=== PATIENT | male | born 2005 | race African-American/Black ===

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

== ENCOUNTER → 2024-01-16 | Outpatient (REF) | payer BC ==
[2024-01-16 17:57] LABS: Trichomonas vaginalis (AMP) NOT DETECTED (NEGATIVE)
[2024-01-16 18:20] LABS: GC DNA AMPLIFICATION NEGATIVE (NEGATIVE)
[2024-01-16 18:42] LABS: HEMATOCRIT 44.1 % (42.0-52.0); HEMOGLOBIN 14.5 g/dl (13.5-17.5); MEAN CORPUSCULAR HEMOGLOBIN 29.7 pg (27.0-33.0); MEAN CORPUSCULAR HGB CONC 32.9 g/dl (32.0-36.5); MEAN CORPUSCULAR VOLUME 90.2 fl (80.0-96.0); PLATELET COUNT, AUTOMATED 280 10^3/uL (150-450); RED BLOOD COUNT 4.89 10^6/uL (4.30-6.10); WHITE BLOOD COUNT 7.7 10^3/uL (4.0-10.0)
[2024-01-16 19:14] LABS: THYROID STIMULATING HORMONE 1.226 uIU/ML (0.48-4.17)
[2024-01-16 19:17] LABS: BLOOD UREA NITROGEN 10 MG/DL (9-23); CARBON DIOXIDE LEVEL 30 MMOL/L (20-31); CHLORIDE LEVEL 106 MMOL/L (98-107); CREATININE FOR GFR 0.95 MG/DL (0.70-1.30); GLUCOSE, FASTING 68 MG/DL (60-100); POTASSIUM SERUM 4.6 MMOL/L (3.5-5.1); SODIUM LEVEL 139 MMOL/L (136-145)
[2024-01-16 19:40] LABS: HIV 1&2 SCREEN NEGATIVE (NEGATIVE)
[2024-01-16 19:47] LABS: HEPATITIS C VIRUS ABY INDEX 0.19 INDEX (<0.8)
== END ==
LOC: M LAB REF 16:06
PROVIDERS: ATTEND Physician Assistant
DX: Z11.3 Encounter for screening for infections with a predominantly sexual mode of transmission (principal); R00.2 Palpitations

== ENCOUNTER → 2024-01-27 | Outpatient (CLI) | payer BC, SELFPAY | LOC: M EKG 12:39 | PROVIDERS: ATTEND Physician Assistant | DX: R00.2 Palpitations (principal) ==